=== PATIENT | female | born 1975 | race Caucasian/White ===

== ENCOUNTER 2017-02-17 18:31 | Emergency (ER) | payer MEDICAID ==
[~2017-02-17] VITALS: Ht 162.6 cm; Wt 72.0 kg
[~2017-02-17 18:31] MED LIST: CARB200T PO
[2017-02-17 18:37] VITALS: BP 127/60
== END 2017-02-17 20:00 | disposition left against medical advice (07) ==
LOC: ER 18:34
DX: R51 Headache (principal)

== ENCOUNTER 2018-12-23 18:05 | Emergency (ER) | payer MEDICAID ==
[~2018-12-23] VITALS: Ht 170.2 cm; Wt 76.0 kg
[2018-12-23] MEDS ORDERED: TOPA200 PO (18:15)
[2018-12-23] MEDS ORDERED: SODIUM CHLORIDE 0.9% 1,000 ML IV ONE (19:27)
[2018-12-23 20:13] LABS: BASOPHILS % 0.5 % (0.0-2.0); EOSINOPHILS % 0.1 % (0.0-5.0); HEMATOCRIT. 29.2 % (36.0-48.0); HEMOGLOBIN. 9.1 g/dL (12.0-16.0); MEAN CORPUSCULAR HEMOGLOBIN 22.8 pg (28.0-32.0); MEAN CORPUSCULAR VOLUME 73.2 fL (81.0-99.0); MEAN PLATELET VOLUME 8.7 fl (7.4-10.4); MONOCYTES % 6.3 % (2.0-8.0); NEUTROPHILS % 68.1 % (40.0-76.0); PLATELET 239 x1000/uL (130-400); RED BLOOD CELL COUNT 3.99 mill/uL (4.2-5.4); RED CELL DISTRIBUTION WIDTH 17.9 % (11.6-14.6)
[2018-12-23 20:30] LABS: CHLORIDE 115 mEq/L (98-107)
[2018-12-23 20:37] LABS: CARBAMAZEPINE 6.5 ug/mL (4-12)
[2018-12-23 20:40] LABS: HCG SCREEN NEGATIVE
[2018-12-23 21:48] LABS: CLARITY URINE CLEAR (CLEAR); COLOR URINE ORANGE (YELLOW); KETONES URINE NEGATIVE (NEGATIVE); LEUKOCYTE ESTERASE URINE NEGATIVE (NEGATIVE); NITRITE URINE NEGATIVE (NEGATIVE); OCCULT BLOOD URINE 3+ (NEGATIVE); PH URINE 7.5 (4.5-8.0); PROTEIN URINE 1+ (NEGATIVE); UROBILINOGEN URINE 0.2 E.U./dL (0.2-1.0)
[2018-12-23 22:44] VITALS: BP 97/52
== END 2018-12-24 00:22 | disposition home or self-care (01) ==
LOC: ER 18:05
DX: G40.909 Epilepsy, unspecified, not intractable, without status epilepticus (principal); M54.5 Low back pain; D50.9 Iron deficiency anemia, unspecified; R03.0 Elevated blood-pressure reading, without diagnosis of hypertension
CPT/HCPCS: 36415; 71045; 80053; 80156; 81003; 84703; 85025; 99284; J7030; Z7610

== ENCOUNTER 2018-12-25 18:32 | Emergency (ER) | payer MEDICAID ==
[~2018-12-25] VITALS: Ht 165.1 cm; Wt 110.0 kg
[~2018-12-25 18:32] MED LIST changes: +TOPA200 PO
[2018-12-25] MEDS ORDERED: SODIUM CHLORIDE 0.9% 1,000 ML IV ONE (19:34)
[2018-12-25 20:03] LABS: CHLORIDE 115 mEq/L (98-107)
[2018-12-25 20:04] LABS: BASOPHILS % 0.4 % (0.0-2.0); EOSINOPHILS % 0.3 % (0.0-5.0); HEMATOCRIT. 32.5 % (36.0-48.0); HEMOGLOBIN. 10.1 g/dL (12.0-16.0); LYMPHOCYTES % 27.9 % (20.0-50.0); MEAN CORPUSCULAR HEMOGLOBIN 22.9 pg (28.0-32.0); MEAN CORPUSCULAR VOLUME 74.1 fL (81.0-99.0); MEAN PLATELET VOLUME 8.7 fl (7.4-10.4); NEUTROPHILS % 64.4 % (40.0-76.0); PLATELET 264 x1000/uL (130-400); RED BLOOD CELL COUNT 4.39 mill/uL (4.2-5.4); RED CELL DISTRIBUTION WIDTH 17.8 % (11.6-14.6)
[2018-12-25 20:08] LABS: ETHANOL BLOOD < 10 mg/dL
[2018-12-25 20:10] LABS: HCG SCREEN NEGATIVE
[2018-12-25 20:11] LABS: CARBAMAZEPINE 4.2 ug/mL (4-12)
[2018-12-25 20:12] LABS: CREATINE KINASE 159 IU/L (26-192)
[2018-12-25 20:13] LABS: PHENOBARBITAL < 2.1 ug/mL (15.0-40.0)
[2018-12-25 20:19] LABS: VALPROIC ACID < 3.0 ug/mL (50-100)
[2018-12-25 20:55] LABS: CLARITY URINE CLOUDY (CLEAR); COLOR URINE YELLOW (YELLOW); KETONES URINE NEGATIVE (NEGATIVE); LEUKOCYTE ESTERASE URINE 1+ (NEGATIVE); NITRITE URINE NEGATIVE (NEGATIVE); OCCULT BLOOD URINE 1+ (NEGATIVE); PH URINE 6.5 (4.5-8.0); PROTEIN URINE 1+ (NEGATIVE); SPECIFIC GRAVITY URINE 1.025 (1.005-1.030); UROBILINOGEN URINE 0.2 E.U./dL (0.2-1.0)
[2018-12-25 21:08] LABS: *AMPHETAMINES SCREEN URINE NEGATIVE (NEGATIVE); CANNABINOID URINE SCREEN NEGATIVE (NEGATIVE)
[2018-12-25 21:09] LABS: *BARBITURATES SCREEN URINE NEGATIVE (NEGATIVE); *BENZODIAZEPINES SCREEN URINE NEGATIVE (NEGATIVE); *COCAINE SCREEN URINE NEGATIVE (NEGATIVE); METHADONE URINE SCREEN NEGATIVE (NEGATIVE); OPIATES URINE SCREEN NEGATIVE (NEGATIVE); PHENCYCLIDINE URINE SCREEN NEGATIVE (NEGATIVE)
[2018-12-25] MEDS ORDERED: NITROFURANTOIN 100MG M/M CAPSULE PO ONE (23:00)
[2018-12-25] MEDS ORDERED: CARBAMAZEPINE 100MG TABLET CHEW PO ONE (23:00)
[2018-12-26] MEDS ORDERED: NITROFURANTOIN 100MG M/M CAPSULE PO ONE (06:45)
[2018-12-26 07:16] VITALS: BP 112/59
[2018-12-26] MEDS ORDERED: TOPIRAMATE 100MG TABLET PO SCH ×2 (08:00→21:00)
[2018-12-26] MEDS ORDERED: CARBAMAZEPINE 200MG TABLET PO SCH (09:00)
== END 2018-12-26 07:18 | disposition home or self-care (01) ==
LOC: ER 18:32
DX: R56.9 Unspecified convulsions (principal); N39.0 Urinary tract infection, site not specified
CPT/HCPCS: 36415; 80053; 80156; 80165; 80184; 80185; 80305; 80320; 81003; 81025; 82550; 83690; 84443; 84703; 85025; 99284; J7030; G0480

== ENCOUNTER 2019-01-16 09:51 | Emergency (ER) | payer MEDICAID ==
[~2019-01-16] VITALS: Ht 167.6 cm; Wt 80.0 kg
[2019-01-16] MEDS ORDERED: SODIUM CHLORIDE 0.9% 1,000 ML IV ONE (10:30)
[2019-01-16] MEDS ORDERED: IBUPROFEN 600MG TABLET PO ONE (10:45)
[2019-01-16 12:45] LABS: BASOPHILS % 0.2 % (0.0-2.0); HEMATOCRIT. 30.9 % (36.0-48.0); HEMOGLOBIN. 9.6 g/dL (12.0-16.0); LYMPHOCYTES % 30.5 % (20.0-50.0); MEAN CORPUSCULAR HEMOGLOBIN 22.5 pg (28.0-32.0); MEAN CORPUSCULAR VOLUME 72.8 fL (81.0-99.0); MEAN PLATELET VOLUME 8.7 fl (7.4-10.4); MONOCYTES % 6.4 % (2.0-8.0); NEUTROPHILS % 62.9 % (40.0-76.0); PLATELET 235 x1000/uL (130-400); RED BLOOD CELL COUNT 4.24 mill/uL (4.2-5.4); RED CELL DISTRIBUTION WIDTH 17.2 % (11.6-14.6)
[2019-01-16 12:49] LABS: CHLORIDE 117 mEq/L (98-107)
[2019-01-16 12:59] LABS: CARBAMAZEPINE 4.9 ug/mL (4-12)
[2019-01-16] MEDS ORDERED: CARBAMAZEPINE 200MG TABLET PO ONE (13:15)
[2019-01-16 13:39] LABS: HCG SCREEN NEGATIVE
[2019-01-16 15:15] VITALS: BP 109/46
== END 2019-01-16 15:17 | disposition home or self-care (01) ==
LOC: ER 09:51
DX: G40.909 Epilepsy, unspecified, not intractable, without status epilepticus (principal); Z59.0 Homelessness
CPT/HCPCS: 36415; 80053; 80156; 84703; 85025; 99283; J7030

== ENCOUNTER 2019-02-01 06:41 | Emergency (ER) | payer MEDICAID ==
[~2019-02-01] VITALS: Ht 165.1 cm; Wt 64.0 kg
[2019-02-01] MEDS ORDERED: SODIUM CHLORIDE 0.9% 1,000 ML IV ONE (06:53)
[2019-02-01] MEDS ORDERED: LORAZEPAM 2MG/ML CPJ IV ONE (07:00)
[2019-02-01 07:43] LABS: BASOPHILS % 0.4 % (0.0-2.0); HEMATOCRIT. 29.7 % (36.0-48.0); HEMOGLOBIN. 9.2 g/dL (12.0-16.0); LYMPHOCYTES % 17.5 % (20.0-50.0); MEAN CORPUSCULAR HEMOGLOBIN 22.6 pg (28.0-32.0); MEAN CORPUSCULAR VOLUME 73.4 fL (81.0-99.0); MEAN PLATELET VOLUME 8.8 fl (7.4-10.4); MONOCYTES % 5.7 % (2.0-8.0); NEUTROPHILS % 76.4 % (40.0-76.0); PLATELET 204 x1000/uL (130-400); RED BLOOD CELL COUNT 4.04 mill/uL (4.2-5.4); RED CELL DISTRIBUTION WIDTH 17.3 % (11.6-14.6)
[2019-02-01 07:49] LABS: CHLORIDE 110 mEq/L (98-107)
[2019-02-01 08:04] LABS: CARBAMAZEPINE < 0.5 ug/mL (4-12)
[2019-02-01 08:52] LABS: CLARITY URINE CLOUDY (CLEAR); COLOR URINE YELLOW (YELLOW); KETONES URINE NEGATIVE (NEGATIVE); LEUKOCYTE ESTERASE URINE NEGATIVE (NEGATIVE); NITRITE URINE NEGATIVE (NEGATIVE); OCCULT BLOOD URINE NEGATIVE (NEGATIVE); PH URINE 7.5 (4.5-8.0); PROTEIN URINE TRACE (NEGATIVE); UROBILINOGEN URINE 0.2 E.U./dL (0.2-1.0)
[2019-02-01] MEDS ORDERED: CARBAMAZEPINE 200MG TABLET PO NR (09:45)
[2019-02-01] MEDS ORDERED: CARBAMAZEPINE 200MG TABLET PO ONE (09:45)
[2019-02-01 10:11] VITALS: BP 128/80
== END 2019-02-01 10:15 | disposition home or self-care (01) ==
LOC: ER 06:41
DX: R56.9 Unspecified convulsions (principal)
CPT/HCPCS: 36415; 80053; 80156; 81003; 81025; 85025; 96374; 99283; J2060; J7030

== ENCOUNTER 2019-02-16 08:04 | Emergency (ER) | payer MEDICAID ==
[~2019-02-16] VITALS: Ht 165.1 cm; Wt 68.0 kg
[2019-02-16] MEDS ORDERED: SODIUM CHLORIDE 0.9% 1,000 ML IV ONE (10:31)
[2019-02-16 11:03] LABS: CLARITY URINE CLOUDY (CLEAR); COLOR URINE YELLOW (YELLOW); KETONES URINE 1+ (NEGATIVE); LEUKOCYTE ESTERASE URINE NEGATIVE (NEGATIVE); NITRITE URINE NEGATIVE (NEGATIVE); OCCULT BLOOD URINE NEGATIVE (NEGATIVE); PROTEIN URINE NEGATIVE (NEGATIVE); SPECIFIC GRAVITY URINE 1.016 (1.005-1.030); UROBILINOGEN URINE 0.2 E.U./dL (0.2-1.0)
[2019-02-16 11:28] LABS: BASOPHILS % 1.1 % (0.0-2.0); EOSINOPHILS % 0.1 % (0.0-5.0); HEMATOCRIT. 33.5 % (36.0-48.0); HEMOGLOBIN. 10.5 g/dL (12.0-16.0); LYMPHOCYTES % 20.7 % (20.0-50.0); MEAN CORPUSCULAR HEMOGLOBIN 22.5 pg (28.0-32.0); MEAN CORPUSCULAR VOLUME 71.6 fL (81.0-99.0); MEAN PLATELET VOLUME 9.1 fl (7.4-10.4); MONOCYTES % 5.7 % (2.0-8.0); NEUTROPHILS % 72.4 % (40.0-76.0); PLATELET 311 x1000/uL (130-400); RED BLOOD CELL COUNT 4.68 mill/uL (4.2-5.4); RED CELL DISTRIBUTION WIDTH 17.7 % (11.6-14.6)
[2019-02-16 11:28] LABS: *AMPHETAMINES SCREEN URINE NEGATIVE (NEGATIVE); *BARBITURATES SCREEN URINE NEGATIVE (NEGATIVE); *BENZODIAZEPINES SCREEN URINE NEGATIVE (NEGATIVE); *COCAINE SCREEN URINE NEGATIVE (NEGATIVE)
[2019-02-16 11:29] LABS: CANNABINOID URINE SCREEN NEGATIVE (NEGATIVE); METHADONE URINE SCREEN NEGATIVE (NEGATIVE); OPIATES URINE SCREEN NEGATIVE (NEGATIVE); PHENCYCLIDINE URINE SCREEN NEGATIVE (NEGATIVE)
[2019-02-16 11:32] LABS: CHLORIDE 110 mEq/L (98-107)
[2019-02-16 11:36] LABS: HCG SCREEN NEGATIVE
[2019-02-16 11:38] LABS: ETHANOL BLOOD < 10 mg/dL
[2019-02-16 11:39] LABS: PHOSPHORUS 3.1 mg/dL (2.5-4.9)
[2019-02-16 11:41] LABS: CREATINE KINASE 190 IU/L (26-192)
[2019-02-16] MEDS ORDERED: LACTATED RINGERS 1,000 ML IV STA (12:16)
[2019-02-16] MEDS ORDERED: CEFTRIAXONE 1 G PREMIX 50 ML IV ONE (12:45)
[2019-02-17] MEDS ORDERED: LEVETIRACETAM 500MG/5ML CUP PO ONE (10:45)
[2019-02-17 15:30] VITALS: BP 107/63
[2019-02-17] MEDS ORDERED: TOPIRAMATE 100MG TABLET PO SCH (21:00)
[2019-02-17] MEDS ORDERED: LEVETIRACETAM 500MG TABLET PO SCH (21:00)
== END 2019-02-17 15:30 | disposition home or self-care (01) ==
LOC: ER 08:15
DX: N39.0 Urinary tract infection, site not specified (principal); R41.82 Altered mental status, unspecified; R56.9 Unspecified convulsions
CPT/HCPCS: 36415; 70450; 80053; 80305; 80307; 80320; 80329; 81003; 82140; 82550; 82962; 83690; 84100; 84484; 84703; 85025; 85610; 93005; 96361; 96365; 99284; J0696; J7030; J7120; Z7610; G0480

== ENCOUNTER 2019-04-29 09:29 | Emergency (ER) | payer MEDICAID ==
[~2019-04-29] VITALS: Ht 162.6 cm; Wt 64.0 kg
[2019-04-29] MEDS ORDERED: LEVETIRACETAM 500MG TABLET PO ONE (09:45)
[2019-04-29 10:38] LABS: CHLORIDE 112 mEq/L (98-107)
[2019-04-29 10:43] LABS: HCG SCREEN NEGATIVE
[2019-04-29 12:28] VITALS: BP 120/61
== END 2019-04-29 12:36 | disposition home or self-care (01) ==
LOC: ER 09:29
DX: G40.909 Epilepsy, unspecified, not intractable, without status epilepticus (principal); R03.0 Elevated blood-pressure reading, without diagnosis of hypertension; Z76.0 Encounter for issue of repeat prescription
CPT/HCPCS: 36415; 80053; 84703; 99283

== ENCOUNTER 2019-05-11 10:26 | Emergency (ER) | payer MEDICAID ==
[~2019-05-11] VITALS: Ht 162.6 cm; Wt 74.0 kg
[2019-05-11 10:36] VITALS: BP 100/59
[2019-05-11] MEDS ORDERED: LEVE1000 PO (10:36)
== END 2019-05-11 11:08 | disposition home or self-care (01) ==
LOC: ER 10:26
DX: R56.9 Unspecified convulsions (principal)
CPT/HCPCS: 99283

== ENCOUNTER 2020-05-18 09:24 | Emergency (ER) | payer MEDICAID ==
[~2020-05-18] VITALS: Ht 165.1 cm; Wt 77.0 kg
[~2020-05-18 09:24] MED LIST changes: -CARB200T PO; +LEVE1000 PO
[2020-05-18] MEDS ORDERED: LEVETIRACETAM 1000MG PREMIX 100 ML IV ONE (10:00)
[2020-05-18 10:14] LABS: BASOPHILS % 0.5 % (0.0-2.0); EOSINOPHILS % 0.1 % (0.0-5.0); LYMPHOCYTES % 28.3 % (20.0-50.0); MEAN CORPUSCULAR HEMOGLOBIN 28.1 pg (28.0-32.0); MEAN PLATELET VOLUME 9.2 fl (7.4-10.4); MONOCYTES % 5.6 % (2.0-8.0); NEUTROPHILS % 65.5 % (40.0-76.0); PLATELET 188 x1000/uL (130-400); RED BLOOD CELL COUNT 4.65 mill/uL (4.2-5.4); RED CELL DISTRIBUTION WIDTH 16.6 % (11.6-14.6)
[2020-05-18 10:28] LABS: CHLORIDE 117 mEq/L (98-107)
[2020-05-18 10:32] LABS: ETHANOL BLOOD < 10 mg/dL
[2020-05-18 10:36] LABS: CREATINE KINASE 239 IU/L (26-192)
[2020-05-18 12:30] VITALS: BP 126/81
== END 2020-05-18 15:06 | disposition home or self-care (01) ==
LOC: ER 09:24
DX: G40.909 Epilepsy, unspecified, not intractable, without status epilepticus (principal)
CPT/HCPCS: 36415; 71045; 80053; 80320; 82140; 82550; 83605; 83690; 84443; 84484; 85025; 96365; 99284; J1953; G0480

== ENCOUNTER 2020-07-11 09:54 | Emergency (ER) | payer MEDICAID ==
[~2020-07-11] VITALS: Ht 160 cm; Wt 68.0 kg
[2020-07-11 10:21] VITALS: BP 108/47
== END 2020-07-11 11:38 | disposition home or self-care (01) ==
LOC: ER 09:57
DX: G40.909 Epilepsy, unspecified, not intractable, without status epilepticus (principal)
CPT/HCPCS: 99283

== ENCOUNTER 2021-04-16 15:12 | Emergency (ER) | payer MEDICAID, OTHER ==
[~2021-04-16] VITALS: Ht 160 cm; Wt 78.0 kg
[2021-04-16] MEDS ORDERED: carbatrol (15:20)
[2021-04-16] MEDS ORDERED: phenobarbital (15:20)
[2021-04-16] MEDS ORDERED: depakote (15:20)
[2021-04-16] MEDS ORDERED: SODIUM CHLORIDE 0.9% 1,000 ML IV ONE (16:45)
[2021-04-16] MEDS ORDERED: LEVETIRACETAM 500MG PREMIX 100 ML IV ONE (16:45)
[2021-04-16 17:07] LABS: BASOPHILS % 0.2 % (0.0-2.0); EOSINOPHILS % 0.1 % (0.0-5.0); HEMATOCRIT. 37.5 % (36.0-48.0); HEMOGLOBIN. 12.1 g/dL (12.0-16.0); LYMPHOCYTES % 23.7 % (20.0-50.0); MEAN CORPUSCULAR HEMOGLOBIN 26.4 pg (28.0-32.0); MEAN CORPUSCULAR VOLUME 81.9 fL (81.0-99.0); MEAN PLATELET VOLUME 9.5 fl (7.4-10.4); MONOCYTES % 7.7 % (2.0-8.0); NEUTROPHILS % 68.3 % (40.0-76.0); PLATELET 221 x1000/uL (130-400); RED BLOOD CELL COUNT 4.58 mill/uL (4.2-5.4); RED CELL DISTRIBUTION WIDTH 15.2 % (11.6-14.6)
[2021-04-16 17:13] LABS: CHLORIDE 114 mEq/L (98-107)
[2021-04-16 19:34] LABS: CLARITY URINE CLEAR (CLEAR); COLOR URINE YELLOW (YELLOW); KETONES URINE NEGATIVE (NEGATIVE); LEUKOCYTE ESTERASE URINE TRACE (NEGATIVE); NITRITE URINE NEGATIVE (NEGATIVE); OCCULT BLOOD URINE TRACE (NEGATIVE); PROTEIN URINE NEGATIVE (NEGATIVE); SPECIFIC GRAVITY URINE 1.009 (1.005-1.030); UROBILINOGEN URINE 0.2 E.U./dL (0.2-1.0)
[2021-04-16 21:30] VITALS: BP 133/63
== END 2021-04-16 21:42 | disposition home or self-care (01) ==
LOC: ER 15:12
DX: R56.9 Unspecified convulsions (principal); Z79.899 Other long term (current) drug therapy
CPT/HCPCS: 36415; 71045; 73030; 76830; 76856; 80053; 81003; 85025; 93005; 96365; 99285; J1953; J7030